=== PATIENT | male | born 1945 | race Caucasian/White ===

== ENCOUNTER 2017-04-25 08:02 | Outpatient (CLI) | payer MEDICARE ==
--- NOTE | 2017-04-25 12:02 | MRI ---
LUMBAR SPINE MRI WITH AND WITHOUT CONTRAST: HISTORY: Lumbar radiculopathy. COMPARISON: None. TECHNIQUE: An MRI of the lumbar spine is performed with and without intravenous Gadolinium administration. Mult isequential, multiplanar imaging is performed. FINDINGS: There is appropriate T1 marrow signal intensity of the lumbar vertebrae. Lumbar spine vertebral body height is maintained. No fracture. There appears to be fusion of the L2-L3 disk space. Severe deg enerative change at L1-L2. There are type II modic changes at L1-L2 and at L2-L3. There is a combin ation of type I and type III modic changes at the lumbosacral junction. Symmetric signal intensity of the psoas muscles. Appropriate signal intensity of the visualized maciel d organs. The conus medullaris terminates at the superior aspect of L1. On the post contrast images, there is no abnormal enhancement of the lumbar vertebrae. There is no a bnormal enhancement within the thecal sac, including the cauda equina and conus medullaris. T12-L1: Adequate disk hydration. No significant central canal stenosis. The neural foramina are pa tent. L1-L2: Severe loss of disk space height. Generalized disk bulge is present. There is mild ligament um flavum thickening and facet hypertrophy. No high grade central canal stenosis. Moderate right fo raminal narrowing. The left neural foramen is patent. L2-L3: Fusion of the disk space. There is a broad-based osteophyte ridge. There is mild central ca nal stenosis. There is moderate right and moderate to severe left foraminal narrowing. L3-L4: Desiccation with mild loss of disk space height. Generalized disk bulge, ligamentum flavum t hickening, and facet hypertrophy result in mild central canal stenosis. Mild narrowing of both subar ticular zones with partial obscuration of the bilateral traversing L4 nerve roots. Moderate bilatera l neural foraminal narrowing. L4-L5: Desiccation with mild loss of disk space height. There is generalized disk bulge with an inf erior and right subarticular disk extrusion. At the level of the disk space, there is mild stenosis due to disk material and posterior element hypertrophy. There is narrowing of the left subarticular zone secondary to disk material and posterior element hypertrophy, which partially obscures the trave rsing left L5 nerve root. Inferior to the disk space, there is narrowing of the right subarticular z one secondary to disk material. There is partial obscuration of the traversing right L5 nerve root. There is moderate to severe bilateral neural foraminal narrowing. L5-S1: Desiccation with severe loss of disk space height. There is a central disk protrusion that a buts the thecal sac. There is no high grade central canal stenosis. Severe right and moderate to se bertram left foraminal narrowing. IMPRESSION: 1. No abnormal enhancement. 2. Extensive endplate changes due to degenerative change, as described above. 3. Central canal stenosis and foraminal narrowing, as detailed above. POS: [facility]
--- NOTE | 2017-04-25 12:05 | MRI ---
CERVICAL SPINE MRI WITH AND WITHOUT CONTRAST: Indication: Cervical radiculopathy. FINDINGS: Susceptibility artifact spans C4 through C6 related to anterior fusion, limiting visualization of the post-operative region. Cervical spinal cord demonstrates appropriate signal and caliber. No high grade central canal stenosis C1-2 or C2-3. There is minimal left foraminal narrowing at C2-3 related to uncinate process hypertrophy. C3-4: Osteophyte ridge is present without significant central canal stenosis. There is bilateral unci ambika process hypertrophy with moderate right and mild to moderate left foraminal narrowing. C4-5: Broad based osteophyte is present without high grade central canal stenosis. There is mild to m oderate bilateral foraminal stenosis. C5-6: There is a broad based osteophyte ridge with mild effacement of the ventral thecal sac. There i s moderate bilateral neural foraminal stenosis. C6-7: Broad based osteophyte is present with mild narrowing of the central canal. There is moderate t o severe right and moderate left neural foraminal narrowing. C7-T1: No high grade central canal or neural foraminal stenosis. Post contrast imaging reveals no pathologic intramedullary enhancement. IMPRESSION: 1. Multilevel degenerative changes of the post-operative surgical spine as outlined above. 2. No pathologic intramedullary enhancement of the cervical spinal cord is demonstrated. POS: [facility]
[2017-04-25] MEDS ORDERED: Gadobenate Dimeglumine 529 MG/1 ML (20ML VIAL) ONE (13:18)
== END 2017-04-25 08:03 | disposition home or self-care (01) ==
LOC: MRI 08:02
PROVIDERS: ATTEND Neurological Surgery
DX: M47.22 Other spondylosis with radiculopathy, cervical region (principal); M47.26 Other spondylosis with radiculopathy, lumbar region; M48.061 Spinal stenosis, lumbar region without neurogenic claudication; M99.53 Intervertebral disc stenosis of neural canal of lumbar region; Z98.890 Other specified postprocedural states
CPT/HCPCS: 72156; 72158; A9579

== ENCOUNTER 2017-05-23 17:05 | Emergency (ER) | payer MEDICARE ==
[2017-05-23 18:36] LABS: #Eosinphils 0.1 thou/uL (0.0-0.7); #Lymphocytes 1.4 thou/uL (1.20-3.40); #Monocytes 0.5 thou/uL (0.11-0.59); #Neutrophils 9.7 thou/uL (1.40-6.50); %Basophils 0.1 % (0.0-1.0); %Lymphocytes 12.2 % (21.0-51.0); %Monocytes 4.3 % (0.0-10.0); %Neutrophils 82.3 % (42.0-75.0); Hemoglobin 14.2 g/dL (14.0-18.0); Mean Corpuscular HGB CONC 33.5 g/dL (32.0-36.0); Mean Corpuscular Hemoglobin 30.2 pg (27.0-31.0); Mean Corpuscular Volume 90.4 fl (80.0-94.0); Mean Platelet Volume 7.8 fL (7.4-10.4); Platelet Count 185 thou/uL (130-400); RBC Distribution Width 13.7 % (11.5-14.5); White Blood Cell (WBC) Count 11.8 thou/uL (4.8-10.8)
--- NOTE | 2017-05-23 18:51 | RAD ---
LEFT HIP TWO VIEW 05/23/17 HISTORY: Trauma. COMPARISON: None. FINDINGS: No acute fracture or malalignment. Acetabular osteophytes are present. IMPRESSION: No acute fracture or malalignment. POS: [facility]
--- NOTE | 2017-05-23 18:55 | RAD ---
CHEST ONE VIEW 05/23/17 HISTORY: Trauma. COMPARISON: None. FINDINGS: Multiple old right sided rib fractures. Lungs are clear. No pneumothorax or effusion. No acute displa roberto. Dense calcifications of the aorta. IMPRESSION: 1. No acute intrathoracic abnormality. 2. Old right sided rib fractures, although are new since 2014. POS: [facility]
[2017-05-23 19:03] LABS: ALT (SGPT) 27 U/L (8-55); AST (SGOT) 26 U/L (5-34); Albumin 4.5 g/dL (3.4-4.8); Alkaline Phosphatase 96 U/L (40-150); Anion Gap 11 mmol/L (10-20); BUN (Urea Nitrogen) 25 mg/dL (8.4-25.7); Bilirubin, Total 0.5 mg/dL (0.2-1.2); Calc. Creatinine Clearance 0 mL/min (70-130); Calcium 10.2 mg/dL (7.8-10.44); Carbon Dioxide 30 mmol/L (23-31); Chloride 101 mmol/L (98-107); Estimated GFR-MDRD 65; Globulin 2.9 g/dL (2.4-3.5); Glucose 221 mg/dL (83-110); Potassium 4.4 mmol/L (3.5-5.1); Protein, Total 7.4 g/dL (5.8-8.1); Sodium 138 mmol/L (136-145)
--- NOTE | 2017-05-23 19:05 | CT ---
CT BRAIN WITHOUT CONTRAST 05/23/17 HISTORY: Trauma. COMPARISON: CT brain 2013. FINDINGS: No acute intracranial hemorrhage or infarct. Ventricular size and extra-axial CSF spaces are normal. 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 No calvarial fracture. Mastoids are clear. IMPRESSION: No acute intracranial abnormality. POS: [facility]
--- NOTE | 2017-05-23 19:25 | CT ---
CT CERVICAL SPINE WITHOUT CONTRAST 05/23/17 HISTORY: Trauma. Fall. COMPARISON: CT cervical spine 04/08/15. FINDINGS: The mastoids are clear. occipital condyles are intact. Odontoid process is intact. ACDF hardware is p resent at C4-C7 with posterior disc osteophyte complexes. No acute fracture or malalignment of the ce rvical spine. 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 Calcifications of the transverse ligamen t of the dens. IMPRESSION: No acute fracture or malalignment of the cervical spine. POS: [facility]
--- NOTE | 2017-05-23 19:29 | CT ---
CT FACE WITHOUT CONTRAST 05/23/17 HISTORY: Trauma, fall. COMPARISON: None. FINDINGS: Nasal bones are intact. The pterygoid plates are intact. Normal lotion of the temporomandibular joint s. The coronoid process is intact. The mandibular condyles are intact. There is an erosion around the left maxillary central incisor. There are also multiple erosions aroun d the roots of the right maxillary first molar. Small dental caries are present. Pagetoid changes of the clivus. The zygoma is intact. The lateral orbital jensen, orbital floors, orbital roofs are intact. There appe ars to be a contusion of the right cheek. Orbits are unremarkable. No retrobulbar hematoma. IMPRESSION: No acute fracture of the face. POS: [facility]
--- NOTE | 2017-05-23 19:30 | RAD ---
RIGHT KNEE FOUR VIEW 05/23/17 HISTORY: Trauma. COMPARISON: None. FINDINGS: No acute displaced fracture or malalignment. Small joint effusion. There is a unicondylar medial comp artment prosthesis which is intact. IMPRESSION: Anterior soft tissue edema suggestive of contusion. No acute fracture or malalignment. POS: [facility]
[2017-05-23] MEDS ORDERED: Lidocaine 1% w/Epinephrine 1:100K 20 ML VIAL ONE (19:40)
--- NOTE | 2017-05-23 21:36 | RAD ---
LET HAND THREE VIEW 05/23/17 HISTORY: Trauma. COMPARISON: Hand radiograph from 2004. FINDINGS: There is a prior amputation of the second digit at the metacarpophalangeal joint. Retrograde screw tr aversing the third distal interphalangeal joint. No new acute fracture or malalignment is appreciated. Advanced degenerative disease of the proximal p halangeal joint of third digit. IMPRESSION: Chronic changes. No acute abnormality. POS: [facility]
== END 2017-05-23 21:44 | disposition home or self-care (01) ==
LOC: ERS 17:05
DX: S06.9X9A Unspecified intracranial injury with loss of consciousness of unspecified duration, initial encounter (principal); S01.112A Laceration without foreign body of left eyelid and periocular area, initial encounter; S61.412A Laceration without foreign body of left hand, initial encounter; E11.9 Type 2 diabetes mellitus without complications; E78.5 Hyperlipidemia, unspecified; I10 Essential (primary) hypertension; Z79.4 Long term (current) use of insulin; Z79.899 Other long term (current) drug therapy; W17.89XA Other fall from one level to another, initial encounter
CPT/HCPCS: 12001; 12011; 70450; 70486; 71045; 72125; 80053; 85025; J2001

== ENCOUNTER 2019-09-16 06:23 | Outpatient (CLI) | payer MEDICARE, OTHER ==
[2019-09-16 10:27] LABS: #Eosinphils 0.2 thou/uL (0.0-0.7); #Lymphocytes 1.8 thou/uL (1.20-3.40); #Monocytes 0.6 thou/uL (0.11-0.59); #Neutrophils 2.9 thou/uL (1.40-6.50); %Basophils 0.8 % (0.0-1.0); %Eosinophils 2.9 % (0.0-10.0); %Lymphocytes 32.7 % (21.0-51.0); %Monocytes 10.6 % (0.0-10.0); %Neutrophils 53.1 % (42.0-75.0); Hemoglobin 13.7 g/dL (14.0-18.0); Mean Corpuscular HGB CONC 33.2 g/dL (32.0-36.0); Mean Corpuscular Hemoglobin 30.5 pg (27.0-31.0); Mean Corpuscular Volume 91.8 fL (78.0-98.0); Mean Platelet Volume 8.5 fL (7.4-10.4); Platelet Count 154 thou/uL (130-400); RBC Distribution Width 13.2 % (11.5-14.5); Red Blood Cell (RBC) Count 4.48 mill/uL (4.70-6.10); White Blood Cell (WBC) Count 5.4 thou/uL (4.8-10.8)
[2019-09-16 10:49] LABS: Bacteria/HPF None Seen HPF (None Seen); Bilirubin Negative (Negative); Blood, Urine Negative (Negative); Clarity Clear (Clear); Glucose, Urine (Dipstick) Normal (Negative); Leukocyte Negative Leu/uL (Negative); Nitrite Negative (Negative); Protein, Urine (Dipstick) Negative (Neg-Trace); RBC/HPF 0-3 HPF (0-3); Squamous Epithelial None Seen HPF (0-3); Urobilinogen Normal mg/dL (Less than 2); WBC/HPF None Seen HPF (0-3)
[2019-09-16 11:05] LABS: Anion Gap 14 mmol/L (10-20); BUN (Urea Nitrogen) 17 mg/dL (8.4-25.7); Calc. Creatinine Clearance 0 mL/min (70-130); Calcium 9.1 mg/dL (7.8-10.44); Carbon Dioxide 27 mmol/L (23-31); Chloride 107 mmol/L (98-107); Estimated GFR-MDRD 73; Glucose 77 mg/dL (83-110); Potassium 4.3 mmol/L (3.5-5.1); Sodium 144 mmol/L (136-145)
[2019-09-17 12:09] LABS: SARS-CoV-2 MS2 Positive; SARS-CoV-2 N Gene Negative; SARS-CoV-2 S Gene Negative; SARS-CoV-2 orf1ab Negative
--- NOTE | 2019-09-17 18:10 | EKG ---
Test Reason : Blood Pressure : / mmHG Vent. Rate : 079 BPM Atrial Rate : 079 BPM P-R Int : 266 ms QRS Dur : 076 ms QT Int : 360 ms P-R-T Axes : 053 000 022 degrees QTc Int : 412 ms Sinus rhythm with 1st degree A-V block Otherwise normal ECG When compared with ECG of 30-APR-2015 14:20, No significant change was found Confirmed by IRIS DEAN (2) on 09/17/2019 6:09:54 PM Referred By: GAEL Confirmed By:IRIS DEAN
== END 2019-09-16 06:24 | disposition home or self-care (01) ==
LOC: LABBT 06:23
PROVIDERS: ATTEND Orthopaedic Surgery Hand Surgery
DX: Z01.818 Encounter for other preprocedural examination (principal); Z11.59 Encounter for screening for other viral diseases; S62.623 Displaced fracture of middle phalanx of left middle finger
CPT/HCPCS: 80048; 81001; 85025; 93005; U0003; 87635; 93010

== ENCOUNTER 2019-11-17 08:16 | Outpatient (CLI) | payer MEDICARE, OTHER ==
[2019-11-18 12:30] LABS: SARS-CoV-2 MS2 Positive; SARS-CoV-2 N Gene Negative; SARS-CoV-2 S Gene Negative; SARS-CoV-2 by NAA Not Detected (NotDetected); SARS-CoV-2 orf1ab Negative
== END 2019-11-17 08:17 | disposition home or self-care (01) ==
LOC: LABBT 08:16
PROVIDERS: ATTEND Orthopaedic Surgery Hand Surgery
DX: T84.60XA Infection and inflammatory reaction due to internal fixation device of unspecified site, initial encounter (principal); Z20.828 Contact with and (suspected) exposure to other viral communicable diseases
CPT/HCPCS: 80053; 80061; 81001; 82043; 83036; 85025; G0103; U0003; 36415; 87635

== ENCOUNTER 2019-11-21 05:45 | Day surgery (SDC) | payer MEDICARE ==
[2019-11-21] MEDS ORDERED: Sodium Chloride 0.9% 10 ML ONE (06:24)
[2019-11-21] MEDS ORDERED: Bupivacaine PF 0.5% 30 ML VIAL ONE (06:24)
[2019-11-21] MEDS ORDERED: Bacitracin Zinc Ointment 30 gm TUBE ONE (06:24)
[2019-11-21] MEDS ORDERED: Betamet Acet/Betamet Na Ph 30 MG/5 ML VIAL ONE (06:24)
[2019-11-21] MEDS ORDERED: Midazolam HCl 2 mg/2 ml Vial ONE (06:25)
[2019-11-21] MEDS ORDERED: Fentanyl 100 MCG/2 ML VIAL ONE (06:25)
--- NOTE | 2019-11-21 10:58 | OP ---
DATE OF PROCEDURE: 11/21/2019 PREOPERATIVE DIAGNOSIS: Painful wire with abscess, pin tract, radial aspect of the base of the middle phalanx, right middle finger. POSTOPERATIVE DIAGNOSIS: 1. Small pin tract abscess, approximately 2 mm x 1, not extending down to the deep subcutaneous tissue. 2. Minimal gross motion of the fracture site in the sagittal plane, but not in frontal plane with one K-wire removed. PROCEDURES PERFORMED: 1. Removal of deep implant, right middle finger proximal phalanx fracture. 2. Re-pinning from a different site, right middle finger proximal and middle phalanx base fracture. 3. Drainage of abscess. 4. C-arm was used, less than or equal to 1.5 minutes. SPECIMEN: One K-wire. ESTIMATED BLOOD LOSS: 10 mL. TOURNIQUET TIME: 8 minutes. INJECTION: 15 mL of 0.5% Marcaine metacarpophalangeal block level, 10 given before the procedure and 5 after. 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 DESCRIPTION OF PROCEDURE: After successful general endotracheal anesthesia, the limb was prepped and draped. The patient then had the time-out done appropriately. He had already given 2 g Ancef and then we gave him the block as described above. We exsanguinated the limb, and inflated tourniquet to 250 mmHg pressure and then brought the C-arm to the field, identified, which of the two radial K-wires were protruding and in the base of the abscess. We then opened the abscess that was 2 mm and so we made a 5-mm incision, dissected down deep, debrided this marked abscess cavity, found it did not go deep, deep in the 2 mm and was around just one of the two radial pins. We then removed this wire, irrigated the site with 250 mL of normal saline and obtained hemostasis. We then performed a fluoroscopy, and in the frontal plane, there was no varus or valgus motion, but in the sagittal plane, there was mild dorsal gap, and in the dorsal 40% of the fracture, so also we replaced the previous wire with a slightly larger wire that was placed in from a dorsal central to the palmar radial direction given at least 5 mm of bone on the opposite side/distal side of the fracture and bone graft site and avoiding the central obstructing remnant of his previous screw. At this point, from 0 to 90 degrees passive motion, there was no gross motion of the fracture site. This confirmed on C-arm fluoroscopy. We cut the wires below the skin where we made a small interest to place a wire. We closed this with a chromic suture. We left the 5 mm wound, used to debride the pin site, abscess opened, but placed bacitracin, Adaptic, 4x4s, Diego, and Luis Angel wrap over the entire construct. He left the operating room without evidence of anesthetic or operative complication. Job ID: [id number]
--- NOTE | 2019-11-21 11:39 | RAD ---
EXAM: 3 views of the left middle finger HISTORY: Left middle finger hardware for fusion COMPARISON: 05/23/2017 FINDINGS/IMPRESSION: Limited intraoperative fluoroscopic views of the middle finger shows the patient be ongoing fusion of the PIP joint of the finger. No perihardware lucency is seen. There is been previous fusion of the DIP joint of the finger with a screw through this level of fusion. 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 Mild degenerative changes seen in the middle finger metacarpophalangeal joint.
== END 2019-11-21 10:00 | disposition home or self-care (01) ==
LOC: SDC 05:45
PROVIDERS: ATTEND Orthopaedic Surgery Hand Surgery
PROC: 0PST04Z Reposition Right Finger Phalanx with Internal Fixation Device, Open Approach (ICD-10-PCS; principal; 2019-11-21)
DX: T84.69XA Infection and inflammatory reaction due to internal fixation device of other site, initial encounter (principal); T84.84XA Pain due to internal orthopedic prosthetic devices, implants and grafts, initial encounter; S62.612 Displaced fracture of proximal phalanx of right middle finger; E78.5 Hyperlipidemia, unspecified; I10 Essential (primary) hypertension; E11.9 Type 2 diabetes mellitus without complications; K21.9 Gastro-esophageal reflux disease without esophagitis; G89.29 Other chronic pain; M54.9 Dorsalgia, unspecified; M19.90 Unspecified osteoarthritis, unspecified site; Z87.891 Personal history of nicotine dependence; Z79.4 Long term (current) use of insulin; Z79.899 Other long term (current) drug therapy; Z88.5 Allergy status to narcotic agent; Z88.6 Allergy status to analgesic agent
CPT/HCPCS: 36416; 76000; 87070; 87205; J0690; J0702; J2250; J3010; J3490; S0020

== ENCOUNTER 2020-06-14 17:48 | Observation (INO) | payer MEDICARE ==
[~2020-06-14 17:48] MED LIST: Iopamidol-370 76% 500 ML 1 ML ONE
[2020-06-14 18:28] VITALS: BMI 27.3
[2020-06-14] MEDS ORDERED: Labetalol HCl 100 MG/20 ML VIAL SLOW IVP PRN (20:00)
[2020-06-14] MEDS ORDERED: hydrALAZINE 20 MG/ML VIAL SLOW IVP PRN (20:00)
[2020-06-14] MEDS ORDERED: Dextrose 50% Abboject 50 ML SYRINGE SLOW IVP PRN (20:09)
[2020-06-14] MEDS ORDERED: Dextrose 5% in Water 1,000 ML IV PRN (20:09)
[2020-06-14] MEDS ORDERED: HumaLOG 300 UNITS/3 ML VIAL SC PRN (20:09)
[2020-06-14] MEDS ORDERED: Ondansetron ODT 4 MG TAB PO PRN (20:10)
[2020-06-14] MEDS ORDERED: Acetaminophen 325 MG TAB PO PRN (20:10)
[2020-06-14] MEDS ORDERED: Calcium Carbonate 500 MG ChewTAB PO PRN (20:10)
[2020-06-14] MEDS ORDERED: Ondansetron PF 4 MG/2 ML Vial IVP PRN (20:10)
[2020-06-14 20:49] LABS: #Eosinphils 0.1 thou/uL (0.0-0.7); #Lymphocytes 1.7 thou/uL (1.20-3.40); #Monocytes 0.4 thou/uL (0.11-0.59); #Neutrophils 7.1 thou/uL (1.40-6.50); %Basophils 0.3 % (0.0-1.0); %Eosinophils 0.7 % (0.0-10.0); %Lymphocytes 18.4 % (21.0-51.0); %Monocytes 4.3 % (0.0-10.0); %Neutrophils 76.3 % (42.0-75.0); Hemoglobin 14.3 g/dL (14.0-18.0); Mean Corpuscular HGB CONC 35.2 g/dL (32.0-36.0); Mean Corpuscular Hemoglobin 32.5 pg (27.0-31.0); Mean Corpuscular Volume 92.3 fL (78.0-98.0); Mean Platelet Volume 8.6 fL (7.4-10.4); Platelet Count 160 thou/uL (130-400); RBC Distribution Width 13.7 % (11.5-14.5); Red Blood Cell (RBC) Count 4.39 mill/uL (4.70-6.10); White Blood Cell (WBC) Count 9.3 thou/uL (4.8-10.8)
[2020-06-14 20:56] LABS: PTT 28.2 sec (22.9-36.1); Prothrombin Time 13.1 sec (12.0-14.7)
[2020-06-14] MEDS ORDERED: Insulin Glargine 20 UNITS in Pre-Filled Syringe 1 EACH SC SCH (21:00)
[2020-06-14] MEDS ORDERED: Lantus 1000 UNITS/10 ML VIAL SC SCH (21:00)
[2020-06-14] MEDS ORDERED: Atorvastatin Calcium 10 MG TAB PO SCH (21:00)
[2020-06-14] MEDS ORDERED: Atorvastatin Calcium 40 MG TAB PO SCH (21:00)
[2020-06-14] MEDS ORDERED: Losartan 25 MG TAB PO SCH (21:00)
[2020-06-14 21:08] LABS: ALT (SGPT) 19 U/L (8-55); AST (SGOT) 17 U/L (5-34); Albumin 4.1 g/dL (3.4-4.8); Alkaline Phosphatase 97 U/L (40-110); Anion Gap 15 mmol/L (10-20); BUN (Urea Nitrogen) 14 mg/dL (8.4-25.7); Bilirubin, Total 0.5 mg/dL (0.2-1.2); Calc. Creatinine Clearance 77 mL/min (70-130); Calcium 9.2 mg/dL (7.8-10.44); Carbon Dioxide 26 mmol/L (23-31); Chloride 105 mmol/L (98-107); Globulin 2.7 g/dL (2.4-3.5); Glucose 197 mg/dL (83-110); Potassium 4.5 mmol/L (3.5-5.1); Protein, Total 6.8 g/dL (5.8-8.1); Sodium 141 mmol/L (136-145)
[2020-06-14 21:14] LABS: Troponin I Less than 0.010 ng/mL (< 0.028)
[2020-06-14] MEDS: Gabapentin 400 MG CAP PO SCH (22:31)
[2020-06-14] MEDS: Meclizine HCl 12.5 MG TAB PO SCH (22:33)
[2020-06-14] MEDS: Famotidine 20 MG TAB PO SCH (22:33)
[2020-06-14 23:23] LABS: Bacteria/HPF None Seen HPF (None Seen); Bilirubin Negative (Negative); Blood, Urine Negative (Negative); Clarity Clear (Clear); Glucose, Urine (Dipstick) 300 mg/dL (Negative); Ketone, Urine Negative (Negative); Leukocyte Negative Leu/uL (Negative); Nitrite Negative (Negative); Protein, Urine (Dipstick) Negative (Neg-Trace); RBC/HPF 0-3 HPF (0-3); Specific Gravity, Urine 1.042 (1.002-1.036); Squamous Epithelial None Seen HPF (0-3); Urobilinogen Normal mg/dL (Less than 2); WBC/HPF None Seen HPF (0-3)
[2020-06-14 23:28] LABS: Sperm/HPF Rare HPF (None Seen)
[2020-06-14] MEDS ORDERED: Clopidogrel Bisulfate 75 MG TAB PO SCH (23:30)
[2020-06-15 04:52] LABS: SARS-CoV-2 PCR by NAA Not Detected (NotDetected)
[2020-06-15 04:58] LABS: #Eosinphils 0.1 thou/uL (0.0-0.7); #Monocytes 0.7 thou/uL (0.11-0.59); #Neutrophils 4.9 thou/uL (1.40-6.50); %Basophils 0.4 % (0.0-1.0); %Eosinophils 1.1 % (0.0-10.0); %Lymphocytes 25.9 % (21.0-51.0); %Monocytes 9.5 % (0.0-10.0); %Neutrophils 63.1 % (42.0-75.0); Hemoglobin 13.5 g/dL (14.0-18.0); Mean Corpuscular HGB CONC 33.1 g/dL (32.0-36.0); Mean Corpuscular Hemoglobin 30.5 pg (27.0-31.0); Mean Platelet Volume 8.4 fL (7.4-10.4); Platelet Count 160 thou/uL (130-400); RBC Distribution Width 13.7 % (11.5-14.5); Red Blood Cell (RBC) Count 4.43 mill/uL (4.70-6.10); White Blood Cell (WBC) Count 7.8 thou/uL (4.8-10.8)
[2020-06-15 05:23] LABS: Anion Gap 11 mmol/L (10-20); BUN (Urea Nitrogen) 13 mg/dL (8.4-25.7); Calc. Creatinine Clearance 80 mL/min (70-130); Calcium 8.9 mg/dL (7.8-10.44); Carbon Dioxide 27 mmol/L (23-31); Cardiac Risk 3.4 (Less than 4.5); Chloride 105 mmol/L (98-107); Cholesterol 125 mg/dl (< 200 Desired); Glucose 171 mg/dL (83-110); HDL Cholesterol 37 mg/dL (>60 Neg Risk); LDL Cholesterol, Calculated 77 mg/dL; Magnesium 1.9 mg/dL (1.6-2.6); Potassium 4.2 mmol/L (3.5-5.1); Sodium 139 mmol/L (136-145); Triglycerides 54 mg/dL (Less than 150)
[2020-06-15] MEDS: HumaLOG 300 UNITS/3 ML VIAL SC PRN ×2 (05:55→12:56)
[2020-06-15] MEDS: Meclizine HCl 12.5 MG TAB PO SCH ×2 (06:02→13:00)
[2020-06-15] MEDS: Gabapentin 400 MG CAP PO SCH (09:00)
[2020-06-15] MEDS ORDERED: Lantus 1000 UNITS/10 ML VIAL SC SCH ×2 (09:00→21:00)
[2020-06-15] MEDS: Famotidine 20 MG TAB PO SCH (09:00)
[2020-06-15] MEDS ORDERED: Insulin Glargine 30 UNITS in Pre-Filled Syringe 1 EACH SC SCH (09:00)
[2020-06-15] MEDS ORDERED: Clopidogrel Bisulfate 75 MG TAB PO SCH (09:00)
[2020-06-15 12:01] VITALS: TEMP 98.3
[2020-06-15 13:43] VITALS: BP 149/80
== END 2020-06-15 16:06 | disposition home or self-care (01) ==
LOC: 2SE 17:48
PROVIDERS: ADMIT Internal Medicine; ATTEND Internal Medicine
DX: R42 Dizziness and giddiness (principal); R11.0 Nausea; B02.21 Postherpetic geniculate ganglionitis; I10 Essential (primary) hypertension; E11.22 Type 2 diabetes mellitus with diabetic chronic kidney disease; N18.2 Chronic kidney disease, stage 2 (mild); E11.42 Type 2 diabetes mellitus with diabetic polyneuropathy; E78.5 Hyperlipidemia, unspecified; K21.9 Gastro-esophageal reflux disease without esophagitis; M19.90 Unspecified osteoarthritis, unspecified site; Z79.4 Long term (current) use of insulin; Z79.899 Other long term (current) drug therapy; Z88.5 Allergy status to narcotic agent; Z88.6 Allergy status to analgesic agent; Z87.891 Personal history of nicotine dependence; Z96.659 Presence of unspecified artificial knee joint; Z20.822 Contact with and (suspected) exposure to COVID-19
CPT/HCPCS: 70450; 70496; 70498; 70551; 71045; 80048; 80061; 81001; 82607; 82746; 82962 ×2; 83735; 84484; 85025; 85610; 85730; 93005; 93306; 97139 ×3; G0378 ×2; G0379; U0003; U0005; 36415; 36416; 80053; 84443; 87635; 93010; 99213; G0463; J1815; Q9967

== ENCOUNTER 2020-06-27 14:44 | Emergency (ER) | payer MEDICARE | END 2020-06-27 17:10 | disposition home or self-care (01) | LOC: ERS 14:44 | DX: M54.5 Low back pain (principal); E11.9 Type 2 diabetes mellitus without complications; E78.5 Hyperlipidemia, unspecified; E78.00 Pure hypercholesterolemia, unspecified; I10 Essential (primary) hypertension | CPT/HCPCS: 99283 ==

== ENCOUNTER 2021-03-12 14:28 | Emergency (ER) | payer MEDICARE ==
[2021-03-12] MEDS ORDERED: Ketorolac Tromethamine 30 MG/ML VIAL ONE (15:00)
== END 2021-03-12 15:46 | disposition home or self-care (01) ==
LOC: ERS 14:28
DX: M25.552 Pain in left hip (principal); M19.90 Unspecified osteoarthritis, unspecified site; E78.5 Hyperlipidemia, unspecified; E11.9 Type 2 diabetes mellitus without complications; E78.00 Pure hypercholesterolemia, unspecified; I10 Essential (primary) hypertension; Z87.891 Personal history of nicotine dependence; Z79.899 Other long term (current) drug therapy; Z79.84 Long term (current) use of oral hypoglycemic drugs; Z79.4 Long term (current) use of insulin
CPT/HCPCS: 96372; J1885

== ENCOUNTER 2021-05-12 10:08 | Outpatient (CLI) | payer MEDICARE | END 2021-05-12 10:09 | disposition home or self-care (01) | LOC: TBSIIMAG 10:08 | PROVIDERS: ATTEND Neurological Surgery | DX: M54.50 Low back pain, unspecified (principal); M47.816 Spondylosis without myelopathy or radiculopathy, lumbar region | CPT/HCPCS: 72148 ==

== ENCOUNTER 2021-07-26 09:40 | Outpatient (CLI) | payer MEDICARE | END 2021-07-26 09:41 | disposition home or self-care (01) | LOC: BICRAD 09:40 | PROVIDERS: ATTEND Family Medicine | DX: S43.61XA Sprain of right sternoclavicular joint, initial encounter (principal); M19.09 Primary osteoarthritis, other specified site | CPT/HCPCS: 71130 ==

== ENCOUNTER 2022-01-30 12:34 | Outpatient (CLI) | payer MEDICARE | END 2022-01-30 12:35 | disposition home or self-care (01) | LOC: LABBT 12:34 | PROVIDERS: ATTEND Thoracic Surgery (Cardiothoracic Vascular Surgery) | DX: Z53.9 Procedure and treatment not carried out, unspecified reason (principal) | CPT/HCPCS: 80048; 85027; 86850; 86900; 86901 ==

== ENCOUNTER 2022-01-30 12:45 | Inpatient (IN) | payer MEDICARE ==
[2022-01-30 13:50] LABS: Hemoglobin 12.9 g/dL (13.5-17.5); Mean Corpuscular HGB CONC 35.2 g/dL (32.0-36.0); Mean Corpuscular Hemoglobin 32.1 pg (27.0-33.0); Mean Platelet Volume 11.2 fl (7.4-10.4); Platelet Count 174 10x3/uL (150-450); RBC Distribution Width 14.2 % (11.5-14.5); Red Blood Cell (RBC) Count 4.02 10x6/uL (4.32-5.72); White Blood Cell (WBC) Count 6.7 10x3/uL (3.5-10.5)
[2022-01-30 13:58] LABS: Anion Gap 15 mmol/L (10-20); BUN (Urea Nitrogen) 18 mg/dL (8.4-25.7); Calc. Creatinine Clearance 0 mL/min (70-130); Calcium 8.9 mg/dL (7.8-10.44); Carbon Dioxide 23 mmol/L (23-31); Chloride 104 mmol/L (98-107); Estimated GFR 76; Glucose 190 mg/dL (83-110); Potassium 4.8 mmol/L (3.5-5.1); Sodium 137 mmol/L (136-145)
[2022-01-31 11:48] VITALS: BMI 25.8
[2022-02-01] MEDS ORDERED: Dexamethasone 4 mg/ml Vial ONE (06:15)
[2022-02-01] MEDS ORDERED: Bupivacaine HCl 0.5%/Epinephrine 1:200,000/PF 30 ml Vial ONE (06:15)
[2022-02-01] MEDS ORDERED: Albumin 5% 500 ML ONE (06:15)
[2022-02-01] MEDS ORDERED: Lidocaine 1% MPF 2 ML VIAL ONE (06:24)
[2022-02-01] MEDS ORDERED: Heparin 10,000 UNITS/1 ML VIAL 30,000 UNITS in Sodium Chloride 0.9% 1,000 ML FS SCH (06:45)
[2022-02-01 07:11] LABS: SARS-CoV-2 NAA Rapid Test Not Detected (NotDetected)
[2022-02-01] MEDS ORDERED: Sodium Chloride 0.9% 100 ML ONE (07:18)
[2022-02-01] MEDS ORDERED: CEFAZOLIN 2 GM VIAL ONE (07:18)
[2022-02-01] MEDS ORDERED: Midazolam HCl 5 mg/5 ml Vial ONE (07:21)
[2022-02-01] MEDS ORDERED: fentaNYL PF 100 MCG/2 ML SYRINGE ONE (07:22)
[2022-02-01] MEDS ORDERED: Cardioplegic Soln 1,000 ML BAG ONE (07:33)
[2022-02-01] MEDS ORDERED: Thrombin 5000 UNITS/5 ML VIAL ONE (07:33)
[2022-02-01] MEDS ORDERED: PROPOFOL 200 MG/20 ML VIAL ONE ×2 (07:33)
[2022-02-01] MEDS ORDERED: Rocuronium Bromide 10 MG/ML (10ML VIAL) ONE ×2 (07:33)
[2022-02-01] MEDS ORDERED: Calcium Chloride 1 GM/10 ML Abboject SYRINGE ONE (07:33)
[2022-02-01] MEDS ORDERED: PHENYLEPHRINE-NS 100 MCG/ML 10 ML SYRINGE ONE (07:33)
[2022-02-01] MEDS ORDERED: Heparin 30,000 units/30 ml VIAL ONE (07:33)
[2022-02-01] MEDS ORDERED: Protamine Sulfate 250 MG/25 ML VIAL ONE (07:33)
[2022-02-01] MEDS ORDERED: Aminocaproic Acid 5 GM/20 ML VIAL ONE (07:33)
[2022-02-01] MEDS ORDERED: Papaverine 60 MG/2 ML VIAL ONE (07:33)
[2022-02-01] MEDS ORDERED: Heparin 5,000 UNITS/ML VIAL ONE (07:33)
[2022-02-01] MEDS ORDERED: ePHEDrine 50 MG/ML VIAL ONE (07:33)
[2022-02-01] MEDS ORDERED: Esmolol 100 MG/10 ML VIAL ONE ×2 (07:33)
[2022-02-01] MEDS ORDERED: Sodium Bicarb 50 MEQ/50 ML Abboject 8.4% SYRINGE ONE (07:33)
[2022-02-01] MEDS ORDERED: Insulin Regular 300 UNITS/3 ML VIAL ONE (08:07)
[2022-02-01] MEDS ORDERED: Post-Op Insulin Drip Protocol IVPB ONE (10:23)
[2022-02-01] MEDS ORDERED: Potassium Chloride 20 MEQ/100 ML PREMIX BAG IVPB PRN (10:23)
[2022-02-01] MEDS ORDERED: Bisacodyl 5 MG TAB PO PRN (10:23)
[2022-02-01] MEDS ORDERED: Mag-Al 1200 mg/1200 mg/30 ML UDCUP PO PRN (10:23)
[2022-02-01] MEDS ORDERED: Guaifenesin DM 100-10/5 ML UDCUP PO PRN (10:23)
[2022-02-01] MEDS ORDERED: hydrALAZINE 20 MG/ML VIAL SLOW IVP PRN (10:23)
[2022-02-01] MEDS ORDERED: NOREPINEPHRINE 8 MG/250 ML-D5W 250 ML IVPB PRN (10:23)
[2022-02-01] MEDS ORDERED: Morphine 2 MG/ML VIAL SLOW IVP PRN (10:23)
[2022-02-01] MEDS ORDERED: FENTANYL 50 MCG/ML 1 ML VIAL SLOW IVP PRN (10:23)
[2022-02-01] MEDS ORDERED: Bisacodyl 10 MG SUPP PR PRN (10:23)
[2022-02-01] MEDS ORDERED: Magnesium 2 GM/50 ML(in water) 2 GM in Premix Bag 1 BAG IVPB SCH (10:23)
[2022-02-01] MEDS ORDERED: Hetastarch 6% 500 ML 500 ML IVPB PRN (10:23)
[2022-02-01] MEDS ORDERED: Acetaminophen 325 MG TAB PO PRN (10:23)
[2022-02-01] MEDS ORDERED: niCARdipine 25 MG in Sodium Chloride 0.9% 250 ML 250 ML IVPB PRN (10:23)
[2022-02-01] MEDS ORDERED: Albumin 5% 250 ML ONE (10:26)
[2022-02-01] MEDS ORDERED: HUMULIN R 100 UNITS in Sodium Chloride 0.9% 100 ML IVPB SCH (10:45)
[2022-02-01] MEDS ORDERED: Dextrose 50% Abboject 50 ML SYRINGE SLOW IVP PRN (10:45)
[2022-02-01] MEDS ORDERED: Dextrose 5% in Water 1,000 ML IV PRN (10:45)
[2022-02-01 11:02] LABS: Actual Bicarbonate (HCO3a) 19.2 mEq/L (22-28); Base Excess (BEa) -5.4 mEq/L (-2.0 to +3.0); CO2 Tension 33.5 mmHg (35.0-45.0); Carboxyhemoglobin (COHb) 0.3 gm% (0.0-3.0); Hemoglobin (Hb) 9.1 g/dL (14.0-18.0); O2 Tension (PaO2), arterial 163.7 mmHg (> 70.0); Potassium - ABG Lab 3.74 mmol/L (3.70-5.30); pH, Arterial 7.38 (7.35-7.45)
[2022-02-01 11:05] LABS: ALV-art Gradient 222.225 mmHg (0-20); Puncture Site Arterial Line
[2022-02-01] MEDS: Lactated Ringer's 1,000 ML IV SCH (11:36)
[2022-02-01 11:41] LABS: Hemoglobin 8.9 g/dL (14.0-18.0); Mean Corpuscular HGB CONC 33.5 g/dL (32.0-36.0); Mean Corpuscular Hemoglobin 32.7 pg (27.0-31.0); Mean Corpuscular Volume 97.6 fl (78.0-98.0); Mean Platelet Volume 8.6 fL (7.4-10.4); Platelet Count 119 10x3/uL (130-400); RBC Distribution Width 13.8 % (11.5-14.5); Red Blood Cell (RBC) Count 2.72 mill/uL (4.70-6.10); White Blood Cell (WBC) Count 36.6 10x3/uL (4.8-10.8)
[2022-02-01] MEDS: Insulin Regular 300 UNITS/3 ML VIAL SC PRN (11:41)
[2022-02-01] MEDS ORDERED: Albumin 25% 25 GM/100 ML BOT IVPB PRN (11:42)
[2022-02-01 11:47] LABS: Anion Gap 11 mmol/L (10-20); BUN (Urea Nitrogen) 17 mg/dL (8.4-25.7); Calc. Creatinine Clearance 74 mL/min (70-130); Calcium 7.6 mg/dL (7.8-10.44); Carbon Dioxide 21 mmol/L (23-31); Chloride 110 mmol/L (98-107); Estimated GFR 89; Glucose 155 mg/dL (83-110); Potassium 3.7 mmol/L (3.5-5.1); Sodium 138 mmol/L (136-145)
[2022-02-01] MEDS: FENTANYL 50 MCG/ML 1 ML VIAL SLOW IVP PRN ×2 (11:51→15:20)
[2022-02-01 11:52] LABS: INR-International Normal Ratio 1.4; Prothrombin Time 18.2 sec (12.0-14.7)
[2022-02-01 11:53] LABS: PTT 32.8 sec (22.9-36.1)
[2022-02-01] MEDS: Ketorolac Tromethamine 30 MG/ML VIAL IVP SCH ×3 (11:59→23:05)
[2022-02-01 13:42] LABS: Band 27 % (5-11); Lymphocytes 17 % (21-51); MDiff Complete? YES; Metamyelocyte 6 % (0-0); Monocytes 4 % (0-10); Myelocyte 2 % (0-0); Neutrophil 44 % (42-75); Platelet Morphology Comment Appears Decreased; Polychromasia SLIGHT = 2-3 cells (100X) (0-2/hpf)
[2022-02-01] MEDS ORDERED: FLU VACC QS2022-23(65YR UP)/PF 240 MCG/0.7 ML SYRINGE IM ONE (14:15)
[2022-02-01 14:35] LABS: Actual Bicarbonate (HCO3a) 17.8 mEq/L (22-28); Base Excess (BEa) -3.1 mEq/L (-2.0 to +3.0); Calcium, Ionized (arterial) 1.06 mmol/L (1.12-1.30); Carboxyhemoglobin (COHb) 0.3 gm% (0.0-3.0); Hemoglobin (Hb) 9.6 g/dL (14.0-18.0); O2 Tension (PaO2), arterial 188.3 mmHg (> 70.0); Potassium - ABG Lab 4.22 mmol/L (3.70-5.30); pH, Arterial 7.56 (7.35-7.45)
[2022-02-01 14:39] LABS: CO2 Tension 20.4 mmHg (35.0-45.0); Puncture Site Arterial Line
[2022-02-01] MEDS: CEFAZOLIN 2 GM in Sodium Chloride 0.9% 100 ML IVPB SCH ×2 (15:04→23:05)
[2022-02-01] MEDS: Ondansetron PF 4 MG/2 ML Vial IVP PRN (16:03)
[2022-02-01 16:15] LABS: Hemoglobin 9.1 g/dL (14.0-18.0)
[2022-02-01 16:35] LABS: Potassium 4.4 mmol/L (3.5-5.1)
[2022-02-01] MEDS: Latanoprost 0.005% Ophth Soln 2.5 ml Bottle EA EYE SCH (20:03)
[2022-02-01] MEDS: Famotidine/PF 20 mg/2ml Vial SLOW IVP SCH (20:03)
[2022-02-01] MEDS ORDERED: Atorvastatin Calcium 20 MG TAB PO SCH (21:00)
[2022-02-01] MEDS: traMADol HCl 50 MG TAB PO PRN (21:37)
[2022-02-02] MEDS: FENTANYL 50 MCG/ML 1 ML VIAL SLOW IVP PRN ×2 (03:17→05:23)
[2022-02-02 04:42] LABS: #Eosinphils 0.1 thou/uL (0.0-0.7); #Neutrophils 14.1 thou/uL (1.40-6.50); %Eosinophils 0.3 % (0.0-10.0); %Lymphocytes 5.8 % (21.0-51.0); %Monocytes 11.7 % (0.0-10.0); %Neutrophils 82.2 % (42.0-75.0); Hemoglobin 8.1 g/dL (14.0-18.0); Mean Corpuscular HGB CONC 33.8 g/dL (32.0-36.0); Mean Corpuscular Hemoglobin 33.3 pg (27.0-31.0); Mean Corpuscular Volume 98.5 fl (78.0-98.0); Mean Platelet Volume 8.8 fL (7.4-10.4); Platelet Count 91 10x3/uL (130-400); RBC Distribution Width 13.9 % (11.5-14.5); Red Blood Cell (RBC) Count 2.42 mill/uL (4.70-6.10); White Blood Cell (WBC) Count 17.1 10x3/uL (4.8-10.8)
[2022-02-02 04:50] LABS: Anion Gap 12 mmol/L (10-20); BUN (Urea Nitrogen) 21 mg/dL (8.4-25.7); Calc. Creatinine Clearance 64 mL/min (70-130); Calcium 8.2 mg/dL (7.8-10.44); Carbon Dioxide 21 mmol/L (23-31); Chloride 111 mmol/L (98-107); Estimated GFR 79; Glucose 135 mg/dL (83-110); Potassium 4.4 mmol/L (3.5-5.1); Sodium 140 mmol/L (136-145)
[2022-02-02] MEDS: Ketorolac Tromethamine 30 MG/ML VIAL IVP SCH ×3 (05:22→18:29)
[2022-02-02] MEDS: Ondansetron PF 4 MG/2 ML Vial IVP PRN (06:22)
[2022-02-02] MEDS: CEFAZOLIN 2 GM in Sodium Chloride 0.9% 100 ML IVPB SCH (06:23)
[2022-02-02] MEDS: Lactated Ringer's 1,000 ML IV SCH (06:46)
[2022-02-02] MEDS: Magnesium 2 GM/50 ML(in water) 2 GM in Premix Bag 1 BAG IVPB SCH (08:34)
[2022-02-02] MEDS: Metoclopramide HCl 10 MG/2 ML VIAL IVP SCH ×3 (08:34→19:54)
[2022-02-02] MEDS: Famotidine/PF 20 mg/2ml Vial SLOW IVP SCH ×2 (08:34→20:00)
[2022-02-02] MEDS: Donepezil HCl 5 MG TAB PO SCH (08:51)
[2022-02-02] MEDS ORDERED: Aspirin 325 MG TAB PO SCH (09:00)
[2022-02-02] MEDS ORDERED: Insulin Glargine 30 UNITS/0.3 ML VIAL SC PRN (10:37)
[2022-02-02] MEDS: traMADol HCl 50 MG TAB PO PRN ×2 (12:50→19:54)
[2022-02-02] MEDS: Insulin Regular 300 UNITS/3 ML VIAL SC PRN ×2 (16:37→20:05)
[2022-02-02] MEDS: Atorvastatin Calcium 20 MG TAB PO SCH (20:00)
[2022-02-02] MEDS: Latanoprost 0.005% Ophth Soln 2.5 ml Bottle EA EYE SCH (20:01)
[2022-02-03] MEDS: traMADol HCl 50 MG TAB PO PRN ×4 (00:32→20:30)
[2022-02-03] MEDS: Metoclopramide HCl 10 MG/2 ML VIAL IVP SCH ×2 (00:34→07:21)
[2022-02-03] MEDS: Ketorolac Tromethamine 30 MG/ML VIAL IVP SCH ×4 (00:35→17:16)
[2022-02-03] MEDS: Insulin Regular 300 UNITS/3 ML VIAL SC PRN ×6 (00:36→22:01)
[2022-02-03 05:16] LABS: Anion Gap 11 mmol/L (10-20); BUN (Urea Nitrogen) 28 mg/dL (8.4-25.7); Calc. Creatinine Clearance 64 mL/min (70-130); Calcium 8.3 mg/dL (7.8-10.44); Carbon Dioxide 23 mmol/L (23-31); Chloride 107 mmol/L (98-107); Estimated GFR 74; Glucose 243 mg/dL (83-110); Potassium 4.3 mmol/L (3.5-5.1); Sodium 137 mmol/L (136-145)
[2022-02-03 05:59] LABS: Band 9 % (5-11); Hemoglobin 7.1 g/dL (14.0-18.0); Lymphocytes 10 % (21-51); MDiff Complete? YES; Mean Corpuscular HGB CONC 33.9 g/dL (32.0-36.0); Mean Corpuscular Hemoglobin 33.4 pg (27.0-31.0); Mean Corpuscular Volume 98.6 fl (78.0-98.0); Mean Platelet Volume 9.1 fL (7.4-10.4); Monocytes 12 % (0-10); Neutrophil 69 % (42-75); Platelet Count 101 10x3/uL (130-400); Platelet Morphology Comment Appears Decreased; RBC Distribution Width 13.9 % (11.5-14.5); Red Blood Cell (RBC) Count 2.14 mill/uL (4.70-6.10); White Blood Cell (WBC) Count 21.5 10x3/uL (4.8-10.8)
[2022-02-03] MEDS: Famotidine/PF 20 mg/2ml Vial SLOW IVP SCH (07:41)
[2022-02-03] MEDS: Aspirin 81 mg Enteric Coated Tablet PO SCH (07:41)
[2022-02-03] MEDS: Lisinopril 2.5 MG TAB PO SCH (07:41)
[2022-02-03] MEDS: Magnesium 2 GM/50 ML(in water) 2 GM in Premix Bag 1 BAG IVPB SCH (07:42)
[2022-02-03] MEDS: Donepezil HCl 5 MG TAB PO SCH (07:42)
[2022-02-03] MEDS: Lactated Ringer's 1,000 ML IV SCH (08:18)
[2022-02-03] MEDS ORDERED: diphenhydrAMINE 25 MG CAP PO PRN (11:00)
[2022-02-03] MEDS ORDERED: Guaifenesin DM 100-10/5 ML UDCUP PO PRN (11:00)
[2022-02-03] MEDS ORDERED: Nitroglycerin 0.4 MG TAB (25 Tab Bottle) SL PRN (11:00)
[2022-02-03] MEDS ORDERED: Bisacodyl 5 MG TAB PO PRN (11:00)
[2022-02-03] MEDS ORDERED: Bisacodyl 10 MG SUPP PR PRN (11:00)
[2022-02-03] MEDS ORDERED: Mineral Oil ENEMA PR PRN (11:00)
[2022-02-03] MEDS ORDERED: Insulin Glargine 30 UNITS/0.3 ML VIAL SC SCH (11:40)
[2022-02-03] MEDS ORDERED: Dextrose 50% Abboject 50 ML SYRINGE SLOW IVP PRN (11:45)
[2022-02-03] MEDS ORDERED: Dextrose 5% in Water 1,000 ML IV PRN (11:45)
[2022-02-03] MEDS ORDERED: traMADol HCl 50 MG TAB PO SCH ×2 (14:00)
[2022-02-03] MEDS ORDERED: hydrALAZINE 20 MG/ML VIAL SLOW IVP PRN (19:25)
[2022-02-03] MEDS: Atorvastatin Calcium 20 MG TAB PO SCH (20:33)
[2022-02-03] MEDS: Insulin Glargine 30 UNITS/0.3 ML VIAL SC SCH (20:33)
[2022-02-03] MEDS: Latanoprost 0.005% Ophth Soln 2.5 ml Bottle EA EYE SCH (22:01)
[2022-02-04] MEDS: Ketorolac Tromethamine 30 MG/ML VIAL IVP SCH ×3 (00:23→12:51)
[2022-02-04] MEDS: Insulin Regular 300 UNITS/3 ML VIAL SC PRN ×2 (07:15→17:38)
[2022-02-04] MEDS: Furosemide 40 MG TAB PO SCH (10:18)
[2022-02-04] MEDS: Aspirin 81 mg Enteric Coated Tablet PO SCH (10:19)
[2022-02-04] MEDS: Potassium Chloride 10 MEQ TAB PO SCH (10:19)
[2022-02-04] MEDS: Insulin Glargine 30 UNITS/0.3 ML VIAL SC SCH ×2 (10:20→20:58)
[2022-02-04] MEDS: Donepezil HCl 5 MG TAB PO SCH (10:20)
[2022-02-04] MEDS: Lisinopril 2.5 MG TAB PO SCH (10:20)
[2022-02-04] MEDS: Atorvastatin Calcium 20 MG TAB PO SCH (20:57)
[2022-02-04] MEDS: Latanoprost 0.005% Ophth Soln 2.5 ml Bottle EA EYE SCH (21:32)
[2022-02-05] MEDS: Furosemide 40 MG TAB PO SCH (08:40)
[2022-02-05] MEDS: Donepezil HCl 5 MG TAB PO SCH (08:40)
[2022-02-05] MEDS: Aspirin 81 mg Enteric Coated Tablet PO SCH (08:40)
[2022-02-05] MEDS: Potassium Chloride 10 MEQ TAB PO SCH (08:40)
[2022-02-05] MEDS: Lisinopril 2.5 MG TAB PO SCH (08:41)
[2022-02-05] MEDS ORDERED: Loperamide HCl 2 MG CAP PO PRN (11:40)
[2022-02-05] MEDS: Insulin Glargine 30 UNITS/0.3 ML VIAL SC SCH ×2 (11:42→21:45)
[2022-02-05] MEDS: Ondansetron PF 4 MG/2 ML Vial IVP PRN (12:05)
[2022-02-05] MEDS: metroNIDAZOLE 500 MG TAB PO SCH ×2 (17:24→21:46)
[2022-02-05] MEDS: traMADol HCl 50 MG TAB PO PRN (21:44)
[2022-02-05] MEDS: Atorvastatin Calcium 20 MG TAB PO SCH (21:46)
[2022-02-05] MEDS: Latanoprost 0.005% Ophth Soln 2.5 ml Bottle EA EYE SCH (21:47)
[2022-02-06] MEDS: Potassium Chloride 10 MEQ TAB PO SCH (09:32)
[2022-02-06] MEDS: metroNIDAZOLE 500 MG TAB PO SCH ×3 (09:32→19:38)
[2022-02-06] MEDS: Lisinopril 2.5 MG TAB PO SCH (09:33)
[2022-02-06] MEDS: Donepezil HCl 5 MG TAB PO SCH (09:33)
[2022-02-06] MEDS: Aspirin 81 mg Enteric Coated Tablet PO SCH (09:33)
[2022-02-06] MEDS: Furosemide 40 MG TAB PO SCH (09:33)
[2022-02-06] MEDS: Insulin Glargine 30 UNITS/0.3 ML VIAL SC SCH ×2 (09:34→19:39)
[2022-02-06] MEDS: Insulin Regular 300 UNITS/3 ML VIAL SC PRN ×2 (12:31→17:29)
[2022-02-06 15:06] LABS: Actual Bicarbonate (HCO3a) 23.6 mEq/L (22-28); Analyzer IN Cardio OR; Base Excess (BEa) -1.3 mEq/L (-2.0 to +3.0); CO2 Tension 40.1 mmHg (35.0-45.0); Carboxyhemoglobin (COHb) 0.6 gm% (0.0-3.0); Hemoglobin (Hb) 11.8 g/dL (14.0-18.0); O2 Tension (PaO2), arterial 358.2 mmHg (> 70.0); Potassium - ABG Lab 4.16 mmol/L (3.70-5.30); pH, Arterial 7.39 (7.35-7.45)
[2022-02-06 15:06] LABS: Actual Bicarbonate (HCO3a) 21.5 mEq/L (22-28); Analyzer IN Cardio OR; Base Excess (BEa) -3.4 mEq/L (-2.0 to +3.0); CO2 Tension 37.9 mmHg (35.0-45.0); Calcium, Ionized (arterial) 1.02 mmol/L (1.12-1.30); Carboxyhemoglobin (COHb) 0.6 gm% (0.0-3.0); Hemoglobin (Hb) 8.4 g/dL (14.0-18.0); O2 Tension (PaO2), arterial 298.9 mmHg (> 70.0); pH, Arterial 7.37 (7.35-7.45)
[2022-02-06 15:06] LABS: Actual Bicarbonate (HCO3a) 22.2 mEq/L (22-28); Analyzer IN Cardio OR; Base Excess (BEa) -1.3 mEq/L (-2.0 to +3.0); CO2 Tension 31.8 mmHg (35.0-45.0); Calcium, Ionized (arterial) 0.97 mmol/L (1.12-1.30); Carboxyhemoglobin (COHb) 0.7 gm% (0.0-3.0); Hemoglobin (Hb) 8.4 g/dL (14.0-18.0); O2 Tension (PaO2), arterial 477.5 mmHg (> 70.0); Potassium - ABG Lab 5.25 mmol/L (3.70-5.30); pH, Arterial 7.46 (7.35-7.45)
[2022-02-06 15:06] LABS: Actual Bicarbonate (HCO3a) 23.8 mEq/L (22-28); Analyzer IN Cardio OR; Base Excess (BEa) -0.7 mEq/L (-2.0 to +3.0); CO2 Tension 38.8 mmHg (35.0-45.0); Calcium, Ionized (arterial) 1.11 mmol/L (1.12-1.30); Carboxyhemoglobin (COHb) 0.8 gm% (0.0-3.0); Hemoglobin (Hb) 12.1 g/dL (14.0-18.0); Potassium - ABG Lab 4.07 mmol/L (3.70-5.30); pH, Arterial 7.41 (7.35-7.45)
[2022-02-06 15:07] LABS: Puncture Site Arterial Line
[2022-02-06 15:07] LABS: Actual Bicarbonate (HCO3a) 22.5 mEq/L (22-28); Analyzer IN Cardio OR; CO2 Tension 37.1 mmHg (35.0-45.0); Calcium, Ionized (arterial) 1.06 mmol/L (1.12-1.30); Carboxyhemoglobin (COHb) 0.8 gm% (0.0-3.0); Hemoglobin (Hb) 7.7 g/dL (14.0-18.0); O2 Tension (PaO2), arterial 257.2 mmHg (> 70.0)
[2022-02-06 15:07] LABS: Puncture Site Arterial Line
[2022-02-06 15:08] LABS: Puncture Site Arterial Line
[2022-02-06 15:08] LABS: Puncture Site Arterial Line
[2022-02-06 15:08] LABS: Puncture Site Arterial Line
[2022-02-06] MEDS: traMADol HCl 50 MG TAB PO PRN ×2 (15:32→23:48)
[2022-02-06] MEDS: Ondansetron PF 4 MG/2 ML Vial IVP PRN ×2 (15:37→22:47)
[2022-02-06] MEDS: Mag-Al 1200 mg/1200 mg/30 ML UDCUP PO PRN (19:37)
[2022-02-06] MEDS: Atorvastatin Calcium 20 MG TAB PO SCH (19:38)
[2022-02-06] MEDS: Latanoprost 0.005% Ophth Soln 2.5 ml Bottle EA EYE SCH (19:40)
[2022-02-06] MEDS ORDERED: Amiodarone 200 MG TAB PO SCH (21:00)
[2022-02-07] MEDS: Amiodarone 450 MG, Admixture Fee 1 EACH in Dextrose 5% in Water 250 ML IVPB SCH ×2 (01:32→11:34)
[2022-02-07] MEDS: Mag-Al 1200 mg/1200 mg/30 ML UDCUP PO PRN ×2 (01:43→23:16)
[2022-02-07] MEDS ORDERED: FENTANYL 50 MCG/ML 1 ML VIAL SLOW IVP SCH (02:30)
[2022-02-07 04:49] LABS: Anion Gap 14 mmol/L (10-20); BUN (Urea Nitrogen) 40 mg/dL (8.4-25.7); Calc. Creatinine Clearance 65 mL/min (70-130); Calcium 7.9 mg/dL (7.8-10.44); Carbon Dioxide 24 mmol/L (23-31); Chloride 100 mmol/L (98-107); Estimated GFR 81; Glucose 132 mg/dL (83-110); Potassium 3.5 mmol/L (3.5-5.1); Sodium 134 mmol/L (136-145)
[2022-02-07 05:12] LABS: Band 1 % (5-11); Hemoglobin 6.8 g/dL (14.0-18.0); Lymphocytes 15 % (21-51); MDiff Complete? YES; Mean Corpuscular Hemoglobin 32.2 pg (27.0-31.0); Mean Corpuscular Volume 97.5 fl (78.0-98.0); Mean Platelet Volume 8.5 fL (7.4-10.4); Monocytes 13 % (0-10); Neutrophil 71 % (42-75); Nucleated RBC 1 % (0); Platelet Count 158 10x3/uL (130-400); Red Blood Cell (RBC) Count 2.12 mill/uL (4.70-6.10); White Blood Cell (WBC) Count 14.8 10x3/uL (4.8-10.8)
[2022-02-07] MEDS: Ondansetron PF 4 MG/2 ML Vial IVP PRN ×2 (07:52→20:38)
[2022-02-07] MEDS: Furosemide 20 MG TAB PO SCH (09:04)
[2022-02-07] MEDS: Insulin Glargine 30 UNITS/0.3 ML VIAL SC SCH ×2 (09:04→23:15)
[2022-02-07] MEDS: Donepezil HCl 5 MG TAB PO SCH (09:04)
[2022-02-07] MEDS: Lisinopril 2.5 MG TAB PO SCH (09:04)
[2022-02-07] MEDS: Potassium Chloride 10 MEQ TAB PO SCH (09:05)
[2022-02-07] MEDS: metroNIDAZOLE 500 MG TAB PO SCH ×3 (09:05→23:16)
[2022-02-07] MEDS: Aspirin 81 mg Enteric Coated Tablet PO SCH (09:05)
[2022-02-07 09:59] LABS: Lipase 69 U/L (8-78)
[2022-02-07] MEDS: Insulin Regular 300 UNITS/3 ML VIAL SC PRN ×3 (11:22→23:18)
[2022-02-07] MEDS: traMADol HCl 50 MG TAB PO PRN (11:35)
[2022-02-07] MEDS ORDERED: traMADol HCl 50 MG TAB PO SCH (12:45)
[2022-02-07] MEDS: traMADol HCl 50 MG TAB PO SCH (17:47)
[2022-02-07] MEDS: Atorvastatin Calcium 20 MG TAB PO SCH (23:15)
[2022-02-07] MEDS: Latanoprost 0.005% Ophth Soln 2.5 ml Bottle EA EYE SCH (23:15)
[2022-02-08] MEDS: traMADol HCl 50 MG TAB PO SCH ×5 (00:07→23:07)
[2022-02-08] MEDS: Mag-Al 1200 mg/1200 mg/30 ML UDCUP PO PRN (03:32)
[2022-02-08] MEDS: Ondansetron PF 4 MG/2 ML Vial IVP PRN ×3 (04:45→20:33)
[2022-02-08] MEDS: Lisinopril 2.5 MG TAB PO SCH (09:13)
[2022-02-08] MEDS: Aspirin 81 mg Enteric Coated Tablet PO SCH (09:13)
[2022-02-08] MEDS: metroNIDAZOLE 500 MG TAB PO SCH ×3 (09:14→20:26)
[2022-02-08] MEDS: Donepezil HCl 5 MG TAB PO SCH (09:15)
[2022-02-08] MEDS: Insulin Glargine 30 UNITS/0.3 ML VIAL SC SCH ×2 (09:16→21:50)
[2022-02-08] MEDS: Potassium Chloride 10 MEQ TAB PO SCH (09:16)
[2022-02-08] MEDS: Furosemide 20 MG TAB PO SCH (09:16)
[2022-02-08 10:20] LABS: Hemoglobin 9.2 g/dL (14.0-18.0); Mean Corpuscular HGB CONC 32.6 g/dL (32.0-36.0); Mean Corpuscular Hemoglobin 30.1 pg (27.0-31.0); Mean Corpuscular Volume 92.1 fl (78.0-98.0); Mean Platelet Volume 8.6 fL (7.4-10.4); Platelet Count 178 10x3/uL (130-400); RBC Distribution Width 15.9 % (11.5-14.5); Red Blood Cell (RBC) Count 3.07 mill/uL (4.70-6.10)
[2022-02-08 11:08] LABS: Anion Gap 13 mmol/L (10-20); BUN (Urea Nitrogen) 36 mg/dL (8.4-25.7); Calc. Creatinine Clearance 65 mL/min (70-130); Calcium 8.3 mg/dL (7.8-10.44); Carbon Dioxide 28 mmol/L (23-31); Chloride 99 mmol/L (98-107); Estimated GFR 77; Glucose 155 mg/dL (83-110); Sodium 136 mmol/L (136-145)
[2022-02-08 11:43] LABS: Anisocytosis SLIGHT = 6-15 cells (100X) (0-5/hpf); Band 2 % (5-11); Lymphocytes 8 % (21-51); MDiff Complete? YES; Monocytes 8 % (0-10); Myelocyte 2 % (0-0); Neutrophil 80 % (42-75); Nucleated RBC 2 % (0); Platelet Morphology Comment Appears Adequate; Polychromasia MODERATE = 3-4 cells (100X) (0-2/hpf)
[2022-02-08] MEDS: Insulin Regular 300 UNITS/3 ML VIAL SC PRN (12:52)
[2022-02-08] MEDS: traMADol HCl 50 MG TAB PO PRN (17:43)
[2022-02-08] MEDS ORDERED: FENTANYL 50 MCG/ML 1 ML VIAL SLOW IVP PRN (18:12)
[2022-02-08] MEDS ORDERED: FENTANYL 50 MCG/ML 1 ML VIAL SLOW IVP SCH (18:30)
[2022-02-08] MEDS: Atorvastatin Calcium 20 MG TAB PO SCH (20:25)
[2022-02-08] MEDS: Simethicone Chewable 80 MG TAB PO PRN (20:25)
[2022-02-08] MEDS: Latanoprost 0.005% Ophth Soln 2.5 ml Bottle EA EYE SCH (21:51)
[2022-02-09] MEDS: Simethicone Chewable 80 MG TAB PO PRN (03:24)
[2022-02-09 03:46] VITALS: TEMP 98.2
[2022-02-09 05:01] LABS: Anion Gap 11 mmol/L (10-20); BUN (Urea Nitrogen) 30 mg/dL (8.4-25.7); Calc. Creatinine Clearance 74 mL/min (70-130); Carbon Dioxide 27 mmol/L (23-31); Chloride 100 mmol/L (98-107); Estimated GFR 88; Glucose 158 mg/dL (83-110); Sodium 134 mmol/L (136-145)
[2022-02-09] MEDS: traMADol HCl 50 MG TAB PO SCH ×2 (05:37→13:24)
[2022-02-09 05:40] LABS: Anisocytosis SLIGHT = 6-15 cells (100X) (0-5/hpf); Band 4 % (5-11); Lymphocytes 4 % (21-51); MDiff Complete? YES; Mean Corpuscular HGB CONC 33.9 g/dL (32.0-36.0); Mean Corpuscular Hemoglobin 31.8 pg (27.0-31.0); Mean Corpuscular Volume 93.8 fl (78.0-98.0); Mean Platelet Volume 8.8 fL (7.4-10.4); Monocytes 5 % (0-10); Neutrophil 87 % (42-75); Platelet Count 177 10x3/uL (130-400); Platelet Morphology Comment Appears Adequate; RBC Distribution Width 15.9 % (11.5-14.5); Red Blood Cell (RBC) Count 2.81 mill/uL (4.70-6.10); White Blood Cell (WBC) Count 17.1 10x3/uL (4.8-10.8)
[2022-02-09 08:11] VITALS: BP 142/65
[2022-02-09] MEDS: Potassium Chloride 10 MEQ TAB PO SCH (09:47)
[2022-02-09] MEDS: metroNIDAZOLE 500 MG TAB PO SCH (09:47)
[2022-02-09] MEDS: Aspirin 81 mg Enteric Coated Tablet PO SCH (09:47)
[2022-02-09] MEDS: Lisinopril 2.5 MG TAB PO SCH (09:47)
[2022-02-09] MEDS: Insulin Glargine 30 UNITS/0.3 ML VIAL SC SCH (09:48)
[2022-02-09] MEDS: Furosemide 20 MG TAB PO SCH (09:48)
[2022-02-09] MEDS: Donepezil HCl 5 MG TAB PO SCH (09:48)
== END 2022-02-09 12:10 | disposition home or self-care (01) | DRG 236 ==
LOC: SURG A 02-01 05:53 → CCU 02-01 09:49 → 2NO 02-03 23:45
PROVIDERS: ADMIT Thoracic Surgery (Cardiothoracic Vascular Surgery); ATTEND Thoracic Surgery (Cardiothoracic Vascular Surgery)
PROC: 02100Z9 Bypass Coronary Artery, One Artery from Left Internal Mammary, Open Approach (ICD-10-PCS; principal; 2022-02-01)
PROC: 021109W Bypass Coronary Artery, Two Arteries from Aorta with Autologous Venous Tissue, Open Approach (ICD-10-PCS; 2022-02-01)
PROC: 06BQ0ZZ Excision of Left Saphenous Vein, Open Approach (ICD-10-PCS; 2022-02-01)
PROC: 5A1221Z Performance of Cardiac Output, Continuous (ICD-10-PCS; 2022-02-01)
PROC: 02L70ZK Occlusion of Left Atrial Appendage, Open Approach (ICD-10-PCS; 2022-02-01)
PROC: 30233N1 Transfusion of Nonautologous Red Blood Cells into Peripheral Vein, Percutaneous Approach (ICD-10-PCS; 2022-02-07)
DX: I25.110 Atherosclerotic heart disease of native coronary artery with unstable angina pectoris (principal); Z20.822 Contact with and (suspected) exposure to COVID-19; K21.9 Gastro-esophageal reflux disease without esophagitis; M19.90 Unspecified osteoarthritis, unspecified site; I10 Essential (primary) hypertension; E11.9 Type 2 diabetes mellitus without complications; M47.22 Other spondylosis with radiculopathy, cervical region; E78.2 Mixed hyperlipidemia; Z79.84 Long term (current) use of oral hypoglycemic drugs; Z79.4 Long term (current) use of insulin; Z79.899 Other long term (current) drug therapy; Z88.8 Allergy status to other drugs, medicaments and biological substances; I48.91 Unspecified atrial fibrillation; R19.7 Diarrhea, unspecified; D64.9 Anemia, unspecified
CPT/HCPCS: 36415; 36416; 36430; 71045; 74018; 74177; 80048; 82805; 83690; 85025; 85027; 85610; 85730; 86850; 86900; 86901; 87324; 87449; 87493; 87804; 87811; 93005; 93010; 93798; 94002; 94150; 97139; C1751; C1776; J0282; J0360; J1100; J1642; J1644; J1815; J1885; J2250; J2405; J2440; J2704; J2720; J2765; J3010; J3370; J3475; J3480; J3490; J7070; J7120; P9016; P9045; P9047; S0017; S0028; U0002

== ENCOUNTER 2022-05-09 13:26 | Outpatient (CLI) | payer MEDICARE | END 2022-05-09 13:27 | disposition home or self-care (01) | LOC: BICRAD 13:26 | PROVIDERS: ATTEND Family Medicine | DX: M79.671 Pain in right foot (principal) ==

== ENCOUNTER 2023-09-17 12:53 | Outpatient (CLI) | payer MEDICARE ==
[~2023-09-17 12:53] MED LIST changes: +Iopamidol 370 76% 100 ML VIAL ONE; -Iopamidol-370 76% 500 ML 1 ML ONE
== END 2023-09-17 12:54 | disposition home or self-care (01) ==
LOC: BICCT 12:53
PROVIDERS: ATTEND Family Medicine
DX: R10.84 Generalized abdominal pain (principal); R63.4 Abnormal weight loss; N20.0 Calculus of kidney; K57.90 Diverticulosis of intestine, part unspecified, without perforation or abscess without bleeding; K44.9 Diaphragmatic hernia without obstruction or gangrene
CPT/HCPCS: 74177; Q9967

== ENCOUNTER 2024-03-07 18:25 | Emergency (ER) | payer MEDICARE ==
[2024-03-07] MEDS ORDERED: HYDROcodone/Acetaminophen 5/325 mg Tablet ONE (19:52)
== END 2024-03-07 20:07 | disposition home or self-care (01) ==
LOC: ERS 18:25
DX: S93.402A Sprain of unspecified ligament of left ankle, initial encounter (principal); I10 Essential (primary) hypertension; E11.9 Type 2 diabetes mellitus without complications; W20.8XXA Other cause of strike by thrown, projected or falling object, initial encounter; Z87.891 Personal history of nicotine dependence
CPT/HCPCS: 99283